=== PATIENT | female | born 1970 | race Caucasian/White ===

== ENCOUNTER 2022-11-15 08:06 | Outpatient (REF) | payer OTHER, SELFPAY | END 2022-11-15 08:07 | disposition home or self-care (01) | LOC: HO.MRI 08:06 | PROVIDERS: PCP Internal Medicine; Visit Provider Internal Medicine | DX: Z13.89 Encounter for screening for other disorder (principal) ==

== ENCOUNTER 2024-11-09 08:00 | Outpatient (AMB) | payer OTHER, SELFPAY ==
[2024-11-09 08:01] VITALS: BP 112/80; PULSE 106; TEMP 36.8; O2SAT 97; BMI 19.3
--- NOTE | 2024-11-09 08:01 | AM.OFFWIN_ITS ---
Intake Vital Signs 11/09/24 08:01 Height 5 ft 7 in Weight 123 lb 8 oz BMI 19.3 BP 112/80 Blood Pressure Location Lt brachial Position Sitting Pulse 106 H Pulse Source Pulse Oximeter Temp 98.2 F Temp Source Oral Pulse Oximetry (%) 97 Oxygen Delivery Method Room Air Intake Visit Reasons: EP ? cellulitis on RT hand Patient Tobacco Use Status: Never used Tobacco Double End [place] Operator Required: No Is last menstrual period known: Yes Post menopausal: No Patient : No Allergies Sulfa (Sulfonamide Antibiotics) (SULFA(SULFONAMIDE ANTIBIOTICS)) Allergy (Severe, Verified 11/09/24 08:07) throat closes methylphenidate (METHYLPHENIDATE) Allergy (Unknown, Verified 11/09/24 08:07) HIVES, DIFF SWALLOWING penicillin V Allergy (Unknown, Verified 11/09/24 08:07) Unknown azithromycin (From ZITHROMAX Z-EVELINA) Adverse Reaction (Intermediate, Verified 11/09/24 08:07) VOMITING From DARVOCET-N 100 Allergy (Intermediate, Uncoded 01/21/20 17:18) RASH Darvocet A500 Allergy (Unknown, Uncoded 02/20/22 11:14) Unknown Erythromycin Allergy (Unknown, Uncoded 02/20/22 11:14) Unknown ZPAK Allergy (Unknown, Uncoded 02/20/22 11:14) Unknown Do you need a note to return to daycare/school/sports/work: No HPI HPI Comments History of Present Illness Details History - The patient is a 54-year-old female pr esenting with management of mast cell disease and cellulitis. - Mast cell disease was diagnosed after a challenging 4.5-year period, confirmed through a biopsy in [place]. - The patient experiences allergic react ions to various substances, including adhesive tape, leading to skin wounds and then cellulitis. - The patient had a wound on the right h and and then it had gotten worse after being in her hot tub. - She has a scabbed wound on the top of the right hand and she has been putting on bactroban cream for the past 3 days with no relief.. - The patient manages her cellulitis wit h doxycycline and topical ointments, with no adverse reactions to doxycycline. - The patient has a history of severe al lergic reactions, requiring constant vigilance and the use of antihistamines and an EpiPen. - She states that this is how it starts and progresses quite rapidly. - She has had to be admitted in the past due to her cellulitis episodes. - She states that she can feel it spread ing under the skin. - She denies fever, chills, numbness, ti ngling, joint pain, CP, or SOB. Physical Exam General: Cooperative, healthy appearing, comfortable, no acute distress and well developed Orientation: Patient oriented x3 Limitations: No limitations Respiratory: Normal respiratory effort and able to speak in complete sentences. Clear to auscultation bilaterally. No w/r/r noted. Cardiovascular: RRR, no m/r/g noted. Normal S1 and S2 Skin: Two oval shaped scabs on the right hand with some swelling noted. No streaking noted. No discharge or bleeding noted. Musculoskeletal: FROM of the digits on the right hand. Hand manager credit is intact. No TTP of the carpal bones on the right. Neuro: Sensation is intact. Patient was informed and verbally consented to the use of an ambient scribe for clinic note documentation during this visit FORMERLY [facility], [facility] Medical History (Updated 02/20/22 @ 14:54 by Huma Dozier MD) Mast cell activation syndrome ADD (attention deficit disorder) Small fiber neuropathy POTS (postural orthostatic tachycardia syndrome) History of diverticulitis Upper respiratory tract infection Family History (Updated 02/20/22 @ 14:53 by Huma Dozier MD) Mother Colon cancer Social History Alcohol intake: current Patient Tobacco Use Status: Never used Tobacco Patient : No Review of Systems Const All systems reviewed & are unremarkable except as noted in HPI and below Physical Exam Vital Signs: Last Vital Signs Temp 98.2 F 11/09/24 08:01 Pulse 106 H 11/09/24 08:01 BP 112/80 11/09/24 08:01 Pulse Ox 97 11/09/24 08:01 Oxygen Delivery Method Room Air 11/09/24 08:01 BMI result Body Mass Index 19.3 Assessment & Plan Assessment & Plan (1) Cellulitis of hand, right: Code(s): L03.113 - Cellulitis of right upper limb Plan Most likely cellulitis Plan - Continue management with antihistamines and EpiPen for acute reactions. - Monitor for new allergic reactions and adjust treatment as needed. - Doxycycline 100 mg BID for 10 days - Apply topical ointments to affected areas to manage symptoms. Medications: New doxycycline hyclate 100 mg PO BID 20 tabs 0RF 10 days mupirocin 2% 1 appl topical TID 22 grams 0RF 10 days Coding Level of Care Code Est Pt Level 3 (49536) Diagnoses Cellulitis of hand, right L03.113
--- OUTSIDE RECORDS SUMMARY | 2024-11-09 08:03 | XMS_ITS | Patient Health Record ---
Author Organization [facility] Address [address] [place] [address] Care Team Providers Care Data Sciences Director Name Role Phone Rc CHERY, Chad Primary Care Provider Alvarado Feliz [phone] Allergies Allergen (clinical drug ingredient) Drug/Non Drug Allergy documented on EMR Reaction Allergy Type Onset Date Status sulfacetamide Sulfacetamide Sodium Unknown Drug Allergy Active methylphenidate Methylphenidate Unknown Drug Allergy Active Darvocet-N 100 Unknown Drug Allergy Ac tive generic mora (uncoded) Unknown Allergy Active azithromycin Zithromax Unknown Drug Allergy Acti ve Reason For Referral No Information Medications Medication SIG (Take, Route, Fr equency, Duration) Notes Start Date End Date Status Pepcid 20 MG 1 tablet at bedtime Orally Once a day for 30 day(s) Active Ritalin 10 MG (Schedule II Drug) Oral for 28 Active MORA 3-0.02 MG 1 tablet Orally Once a day for 28 day(s) Active Readi-Cat 2 2 % 450ML Orally as directed for 1 days 06/09/2018 Active Immunizations Vaccine Route Administration Date Status Comme nts Influenza Unknown 05/20/2018 Refused Social History Tobacco Use: Social History Observation Description Date Details (start date - stop date) Never Smoker NA - NA Tobacco Use/Smoking Question Answer Notes Patient is a nonsmoker Alcohol Screen Question Answer Notes Did you have a drink contain ing alcohol in the past year? Yes How often did you have a dri nk containing alcohol in the past year? 4 or more times a week (4 points) How many drinks did you have on a typical day when you were drinking in the past year? 1 or 2 drinks (0 point) How often did you have 6 or more drinks on one occasion in the past year? Never (0 point) Points 4 Interpretation Positive Section Notes: Nonsmoker; occ alcohol Problems Problem Type SNOMED Code ICD Code Onset Dates Problem Status W/U Status Risk Notes Problem 26797466 Epigastric pain (R10.13) Active confirmed Problem 460792695 Gastroesophageal reflux disease, esophagitis presence not specified (K21.9) Active confirmed Problem [id number] Abnormal liver ultrasound (R93.2) Active confirmed Plan Of Treatment Pending Test Test Name Order Date CT ABD & PELVIS WITH CONTRAST 06/05/2018 Future Test Test Name Order Date UPPER GI ENDOSCOPY 05/20/2018 Insurance Providers Payer Name Payer Address Payer Phone Subscriber Number Group Number Insured Name Patient Relationship to Insured Coverage Start Date Coverage End Date [facility] [address] [place], [place] [id number] DARIAN AREVALO Self - patient is the insured Medical (General) History Medical History History ICD Code Denies VT,DM,CVA,Lung disease,renal dise ase Diagnosed with GERD by Dr. Sun (ENT)--took omeprazole for a sore throat for a few months or so with relief ADDCO---Form of ADD Surgical History Surgery Date(Month/Year) Laparoscopy (cyst on ovaries) 1994
== END 2024-11-09 09:05 | disposition home or self-care (01) ==
PROVIDERS: PCP Internal Medicine; Visit Provider Physician Assistant Medical
DX: L03.113 Cellulitis of right upper limb (principal)